=== PATIENT | male | born 2000 | race Caucasian/White ===

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

== ENCOUNTER 2018-09-28 00:27 | Emergency (ER) | payer BC ==
--- OUTSIDE RECORDS SUMMARY | 2018-09-28 01:08 | XMS REPORT | Continuity of Care Document ---
:2000 External Reference #:[id number] Author Name Iva Valdivia Care Team Providers Name Role Phone Cortes Lopez DO Primary Care Physician Unavailable Payers Date Identification Numbers Payment Provider Subscriber Effective: Policy Number: Sajan Salcedo Ppmey Arnol Wynn 2018 [id number] Group Number: [id number] [address] [address] PayID: [id number] JAIR Blair [id number] Advance Directives Description No Information Available Problems Description No Information Family History Date Family Member(s) Observation Comments General Cancer General Diabetes General Heart Disease General Hypertension General Stroke Social History Type Date Description Comments Sex Unknown Lives With Alone Occupation Student ETOH Use Denies alcohol use Tobacco Use Start: Unknown Patient has never smoked Smoking Status Reviewed: 09/28/17 Patient has never smoked Allergies, Adverse Reactions, Alerts Description No Known Drug Allergies Medications Medication Date Status Form Strength Qnty SIG Indications Ordering Provider No Active 02/04/ Active Unknown Medications 2017 Lovenox 11/16/ Hx Solution 40mg/0.4ML 14unit inject sq Gopal [place] 2017 - s daily as Shelly, 02/03/ directed ceci LANDRY 2017 2 weeks Oxycodone HCL 11/16/ Hx Tablets 5mg 56tabs 1-2 tab by Mc 2017 - mouth Moise, 02/03/ every 4-6 M.D. 2017 hours as needed for pain Ketorolac 11/16/ Hx Tablets 10mg 14tabs 1 tab po q Mc Tromethamine 2017 - 6 h prn Moise 02/03/ pain M.D. 2017 Immunizations Description No Information Available Vital Signs Date Vital Result Comment 09/28/2017 11:47am Height 70 inches 5'10" Weight 156.00 lb Heart Rate 51 /min BP Systolic 12 mmHg BP Diastolic 55 mmHg Respiratory Rate 16 /min BMI (Body Mass Index) 22.4 kg/m2 Height Percentile 56 % Weight Percentile 53rd 06/22/2017 10:26am Height 70.50 inches 5'10.50" Weight 142.00 lb Heart Rate 62 /min Respiratory Rate 14 /min Body Temperature 97.5 F Pain Level 4 BMI (Body Mass Index) 20.1 kg/m2 Height Percentile 63 % Weight Percentile 31st 03/18/2017 10:40am Height 70.50 inches 5'10.50" Weight 142.00 lb Heart Rate 60 /min BP Systolic 109 mmHg BP Diastolic 78 mmHg Body Temperature 97.7 F Pain Level 0 BMI (Body Mass Index) 20.1 kg/m2 Height Percentile 63 % Weight Percentile 32nd 02/04/2017 8:59am Height 70.50 inches 5'10.50" Weight 142.00 lb Heart Rate 64 /min BP Systolic 116 mmHg BP Diastolic 70 mmHg Respiratory Rate 15 /min Body Temperature 96.0 F Pain Level 3 BMI (Body Mass Index) 20.1 kg/m2 Blood Pressure Percentile 26 % Height Percentile 64 % Weight Percentile 33rd Results Description No Information Available Procedures Date Code Description Status 11/14/2016 45525 [place] Tibial Shaft FX W Or W/O Fibular FX W/Plates,Screws Or Completed Cer[facility] 11/14/2016 37947 [place] Tibial Shaft FX W Or W/O Fibular FX W/Plates,Screws Or Completed Cerclag Encounters Type Date Location Provider Dx Diagnosis Office Visit 09/28/2017 Orthopedic Mc Phipps [id number] Unsp fx shaft of 11:30a [facility] right tibia, subs for clos fx w [place] [facility] Office Visit 06/22/2017 Orthopedic Mc Phipps [id number] Unsp fx shaft of 10:30a [facility] right tibia, subs for clos fx w [place] Office Visit 03/18/2017 Orthopedic Mc Phipps [id number] Unsp fx shaft of 10:45a [facility] right tibia, subs for clos fx w routn heal Plan of Treatment 09/28/2017 - Mc Phipps M.D.[id number] Unspecified fracture of shaft of right tibia, subsequent encounter for closed fracture withroutine healingFollow up:As needed
[2018-09-28] MEDS: Ondansetron ODT TAB* 4 MG SL ONE (01:17)
--- NOTE | 2018-09-28 01:39 | ED ---
Substance Abuse/Use - HPI Summary HPI Summary: A 18 y/o male brought in by his friend presents to [facility] with a chief complaint of EtOH intoxication since a few hours ago. Per friend, the patient had an unknown amount of EtOH while at a restaurant. He was found vomiting and was incontinent. Per friend, he did not fall down or hit his head. - History Of Current Complaint Chief Complaint: EDSubstanceAbuse Stated Complaint: ETOH PER PT Time Seen by Provider: 09/28/18 01:18 Hx Obtained From: Other: - friend Hx From Patient Unobtainable Due To: Other - intoxicated Onset/Duration of Drug/ETOH Abuse: Hours Ingestion History: Type/Name Of Drug - EtOH, Amount Ingested - unknown, Approximate Time Of Ingestion - unknown Overdose Characteristics: Oral Timing Of Abuse: Binge Use Severity Initially: Mild Severity Currently: Mild Aggravating Factor(s): Nothing Alleviating Factor(s): Nothing Associated Signs And Symptoms: Negative - fever - Allergies/Home Medications Allergies/Adverse Reactions: Allergies Allergy/AdvReac Type Severity Reaction Status Date / Time No Known Allergies Allergy Verified 11/14/16 13:53 PMH/Surg Hx/FS Hx/Imm Hx Endocrine/Hematology History: Denies: Hx Diabetes Cardiovascular History: Denies: Hx Hypertension - e Sensory History: Denies: Hx Contacts or Glasses, Hx Hearing Aid Opthamlomology History: Denies: Hx Contacts or Glasses - Surgical History Hx Anesthesia Reactions: No Infectious Disease History: No Infectious Disease History: Denies: Traveled Outside the US in Last 30 Days - Family History Known Family History: Negative: Cardiac Disease, Hypertension, Diabetes - Social History Alcohol Use: None Hx Substance Use: No Substance Use Type: Reports: None Hx Tobacco Use: No Smoking Status (MU): Never Smoked Tobacco Have You Smoked in the Last Year: No Review of Systems Negative: Fever Positive: Vomiting, Nausea Neurological: Other - negative: hitting head Psychological: Other - positive: EtOH intoxication All Other Systems Reviewed And Are Negative: Yes Physical Exam - Summary Physical Exam Summary: Appearance: Appears intoxicated Skin: Warm, dry, no obvious rash Eyes: sclera anicteric, no conjunctival pallor ENT: mucous membranes moist Neck: deferred Respiratory: No signs of respiratory distress Cardiovascular: Appears well perfused, pulses are nml Abdomen: deferred Musculoskeletal: Moving all 4 extremities without obvious discomfort Triage Information Reviewed: Yes Vital Signs On Initial Exam: Initial Vitals Temp Pulse Resp BP Pulse Ox 95 F 66 16 129/78 99 09/28/18 00:30 09/28/18 00:30 09/28/18 00:30 09/28/18 00:30 09/28/18 00:30 Vital Signs Reviewed: Yes Diagnostics - Vital Signs Vital Signs Temp Pulse Resp BP Pulse Ox 09/28/18 00:30 95 F 66 16 129/78 99 - Laboratory Lab Statement: Any lab studies that have been ordered have been reviewed, and results considered in the medical decision making process. Course/Dx - Course Course Of Treatment: A 18 y/o male brought in by his friend presents to [facility] with a chief complaint of EtOH intoxication since a few hours ago. Per friend, the patient had an unknown amount of EtOH while at a restaurant. He was found vomiting and was incontinent. Per friend, he did not fall down or hit his head. In the ED course the patient was given Zofran SL. The patient will be discharged home and is agreeable with this plan. - Diagnoses Provider Diagnoses: Alcohol intoxication Discharge - Sign-Out/Discharge Documenting (check all that apply): Patient Departure - DC Patient Received Moderate/Deep Sedation with Procedure: No - Discharge Plan Condition: Stable Disposition: HOME Patient Education Materials: Alcohol Intoxication (ED) Referrals: [facility] PHYSICIAN REFERRAL [Outside] - Billing Disposition and Condition Condition: STABLE Disposition: Home - Attestation Statements Document Initiated by Lor: Yes Documenting Scribe: Zack Jimenez Provider For Whom Lor is Documenting (Include Credential): Dimitrios Adorno MD Scribe Attestation: Zack Mann scribed for Dimitrios Adorno MD on 10/01/18 at 0544. Scribe Documentation Reviewed: Yes Provider Attestation: The documentation as recorded by the Zack tai accurately reflects the service I personally performed and the decisions made by me, Dimitrios Adorno MD Status of Scribe Document: Viewed
[2018-09-28 03:23] VITALS: BP 124/72
== END 2018-09-28 03:22 | disposition home or self-care (01) ==
LOC: ED 00:27
DX: F10.129 Alcohol abuse with intoxication, unspecified (principal)
CPT/HCPCS: 99282; A9270-GY